=== PATIENT | female | born 1965 | race Caucasian/White ===

== ENCOUNTER 2024-08-19 18:45 | Emergency (ER) | payer OTHER, MEDICARE, SELFPAY ==
[2024-08-19 18:49] VITALS: BP 146/63; PULSE 97; RESP 18; TEMP 36.3; O2SAT 100; BMI 20.7
[2024-08-19] MEDS: Diphth,Pertus(ACell),Tet Adult 0.5 ML SYRINGE IM (19:05)
--- NOTE | 2024-08-19 19:05 | ED_ITS ---
HPI - General Adult General Chief complaint: Wound/Laceration Stated complaint: Finger lac Time Seen by Provider: 08/19/24 18:58 Source: patient Mode of arrival: ambulatory Limitations: no limitations History of Present Illness ED Provider: Jaime Malik HPI narrative: 58 yold female with pmh of anxiety presents to the ED for right thumb bleeding, after cutting her finger on mandolin. Patient deneis any other trauma. Patient is not on any blood thiners. Related Data Allergies Allergy/AdvReac Type Severity Reaction Status Date / Time bee pollen [bees] Allergy Severe Anaphylaxis Verified 08/19/24 18:50 nut - unspecified Allergy Severe Anaphylaxis Verified 08/19/24 18:50 Review of Systems 2 Review of Systems: RIght thumb laceration Yes all other systems are reviewed and are negative [facility], [facility] Social History Social History Advance Directives: No Advance Directives Information Provided: No Do you have a plan to hurt others: No Plan Physical Exam ED Vital Signs: Vital Signs - 24 hr 08/19/24 18:49 08/19/24 19:32 Temperature 97.4 F 97.2 F Pulse Rate 97 96 Respiratory Rate 18 18 Blood Pressure 146/63 H 148/88 H Pulse Oximetry 100 100 Oxygen Delivery Method Room Air Room Air BMI result Body Mass Index 20.7 Const General: cooperative, healthy appearing, comfortable, no acute distress, well developed, alert, awake and Physically active Orientation/consciousness: patient oriented x3 HENMT Head: Yes normal to inspection, Yes No palpable skull fracture present and Yes normocephalic Eyes General: appearance normal, both eyes and all related structures Neck Neck: Yes normal visual inspection, Yes full ROM, Yes no lymphadenopathy, Yes no meningeal signs, Yes trachea midline, Yes supple, No anterior neck swelling and No tender Chest Chest palpation & inspection: normal inspection of the chest and normal palpation of entire chest wall Resp Effort & Inspection: normal respiratory effort and able to speak in complete sentences Auscultation: clear to auscultation bilaterally Cardio Jugular venous distension: no JVD Heart sounds: S1 normal heart sound present and S2 normal heart sound present GI Inspection: Yes normal to inspection Palpation (GI): Soft to palpation, not firm, nontender, no guarding and not rigid General: Yes no CVA tenderness Back/Spine/Pelvis Back: no CVA tenderness and No back tenderness Skin General skin exam: no rashes or lesions noted, elasticity normal and turgor normal Neuro General: patient oriented x3, gait normal, tone normal, moves all extremities, Normal light touch and pain sensation, no meningeal signs, no focal motor deficits, CN's II-XI intact bilaterally and normal sensation to monofilament Extrem General: Yes normal to inspection and Yes full ROM Hand/finger images: 2 1. skin avulsion. bleeding controlled. negative for signs of tendon/nerve injury. Rest of extremity is normal. Motor, neuro, and vascular exam intact. Psych Appearance: grossly normal, well kempt and not disheveled Medications Administered Discontinued Medications Generic Name Dose Route Start Last Admin Trade Name Freq PRN Reason Stop Dose Admin Diphtheria/Tetanus/Acell Pertussis 0.5 ml 08/19/24 18:58 08/19/24 19:05 Diphth,Pertus(Acell),Tet Adult 0.5 Ml Syringe IM 08/19/24 18:59 0.5 ml .ONCE ONE Administration Medical Decision Making Medical Decision Making [facility] Narrative: 58-year-old female presents to the to rash laceration to right thumb while cutting potatoes using the Mandolin. Patient is not on any blood thinners. Patient denies any blunt trauma. On exam negative for bone exposure. Positive for skin avulsion. No need for suture repair. Pressure dressing placed. Tdap ordered. not suspecting amputation, nerve injury, tendon injury, compartment syndrome, cellulitis, osteomyelitis, arterial occlusion, fracture or any other life-threatening etiology. No need for x-ray. Differential Diagnosis Differential Diagnoses: The differential diagnosis associated with the presentation includes (Laceration abrasion skin avulsion) Admission/Observation Consideration of admission/observation: Escalation of care including admission/observation considered Lab Data [facility] Lab Attestation statement: I reviewed the patient's lab results. Independent Historian Clinical information obtained from an independent historian. History obtained from or confirmed by: Other (Patient) External Record Review External record reviewed: Outside ED record (Prior visits) Discharge Plan Discharge Clinical Impression: Avulsion of skin Patient Disposition: Home, Self-Care Instructions: Skin Avulsion (ED) Additional Instructions: Keep dressing on and wound dry at least the 1st 48 hours. Return to the ED for profuse bleeding, redness, swelling, bluish black discoloration, fever, chills, stiffness, or any other concerning symptoms. Recommend follow up with primary care provider. Referrals: Hazel Braun MD [Physician] - (Skin avulsion) Interventions: ED Discharge Assessment Last Done: 08/19/24 19:32 Discharge Date/Time: 08/19/24 19:34 Print Language: Danish
--- NOTE | 2024-08-19 19:06 | PC.NURSE ---
pressure dressing applied, pt medicated per order
[2024-08-19 19:32] VITALS: BP 148/88; PULSE 96; RESP 18; TEMP 36.2; O2SAT 100
== END 2024-08-19 19:34 | disposition home or self-care (01) ==
LOC: HO.ED 19:22
PROVIDERS: Emergency Provider Emergency Medicine
DX: S61.011A Laceration without foreign body of right thumb without damage to nail, initial encounter (principal); W27.4XXA Contact with kitchen utensil, initial encounter; Y93.G1 Activity, food preparation and clean up; Y92.000 Kitchen of unspecified non-institutional (private) residence as the place of occurrence of the external cause; Y99.9 Unspecified external cause status; Z23 Encounter for immunization
CPT/HCPCS: 90471; 90715; 99282; 99284

== ENCOUNTER 2024-09-06 11:12 | Outpatient (AMB) | payer OTHER, MEDICARE, SELFPAY ==
[2024-09-06 11:28] VITALS: BMI 20.6
--- NOTE | 2024-09-06 11:28 | A.OFFVIS_ITS ---
Vital Signs 09/06/24 11:28 Height 5 ft 1 in Weight 109 lb BMI 20.6 Intake Visit Reasons: [employer]-ED f/u RT thumb laceration DOI 08/19/24 Intake Note: Juliette is a 58 year old right hand dominant female who presents today as a new patient for an emergency department follow up for her right thumb injury, DOI: 08/19/2024. Patient reports cutting her finger while chopping veggies. Seen in ED same day where xrays were taken and her finger was wrapped. She was told not to wet her finger. Currently states she has no pain just numbness and tingling. States she did not have numbness prior to her injury. No past hand surgery. Allergies bee pollen [bees] Allergy (Severe, Verified 09/06/24 11:31) Anaphylaxis nut - unspecified Allergy (Severe, Verified 09/06/24 11:31) Anaphylaxis HPI Comments Details: Patient is a 58-year-old female who presents for ED follow-up for laceration of the right thumb, date of injury 08/19/2024. On date, the patient reports that she was cooking, range got vegetables when she slipped and caused her right thumb to be cut by the mandolin of the distal aspect. Patient will ED, where sutures were placed. Today, the patient reports that she is doing much better, and it appears that the wound has healed. The patient states that she has not been getting the wound wet at all since she was seen in the emergency department. She does report some minor numbness around the laceration site. No other acute complaints or concerns at this time. [facility] Medical History (Updated 09/06/24 @ 13:09 by JANEY Massey) Anxiety Depression delivery delivered Social History (Updated 09/06/24 @ 11:33 by GERARDO Olmstead) Current occupational status: disabled Current occupation: rt hand Review of Systems Const All systems reviewed & are unremarkable except as noted in HPI and below Physical Exam Vital Signs: BMI result Body Mass Index 20.6 Extrem Other: Patient is alert, oriented, and in no acute distress. Neuro: Normal sensation of the tips of all other digits of the right hand at this time Vascular: Cap refill brisk Pain: No tenderness to palpation about the laceration site ROM: Patient is able to make closed fist and extend all digits of the right hand fully and without difficulty Skin: Well-healed laceration noted in the tip of the right thumb No surrounding erythema or evidence of infection Wound appears well closed General: No ecchymosis, erythema, or evidence of infection. Psych: Appears grossly normal Affect normal Attitude cooperative Assessment & Plan Assessment & Plan (1) Laceration of right thumb: Code(s): S61.011A - Laceration without foreign body of right thumb without damage to nail, initial encounter Category: Medical Plan 1. Laceration of right thumb Date of injury 08/19/2024 Patient appears to have recovered well from her injury Patient is educated that she will require no acute follow-up with us Patient is educated she can wash the laceration site with soap and water Patient is educated she will require no further acute follow-up with us Patient was amenable to this plan Patient will follow-up as needed with any acute concerns Coding Level of Care Code New Pt Level 3 (96059) Diagnoses Laceration of right thumb S61.011A
== END 2024-09-06 11:40 | disposition home or self-care (01) ==
PROVIDERS: PCP Internal Medicine
DX: S61.011A Laceration without foreign body of right thumb without damage to nail, initial encounter (principal)
CPT/HCPCS: 99203

== ENCOUNTER → 2024-09-06 11:12 | Outpatient (BNVA) | payer OTHER, MEDICARE, SELFPAY | PROVIDERS: PCP Internal Medicine ==